=== PATIENT | female | born 1980 | race Hispanic/Latino ===

== ENCOUNTER 2019-01-27 05:24 | Emergency (ER) | payer BC ==
[2019-01-27 05:33] VITALS: BP 135/87; TEMP 98.6
--- NOTE | 2019-01-27 06:22 | ED PDOC ---
History of Present Illness History of Present Illness: 39 year old female with no significant medical history presents to the ED for evaluation of a sore throat and chills for 4 days. Patient reports symptoms are worst today, prompting visit. She took Benadryl yesterday with no relief of symptoms. Patient states, in addition to other symptoms, she also vomited once 3 days ago. Offers no other complaints. PMD: none HPI: Influenza Time Seen by Provider: 01/27/19 05:30 Chief Complaint: Flu-like Symptoms Chief Complaint (Provider): Flu-like Symptoms History Per: Patient Exam Limitations: no limitations Onset/Duration Of Symptoms: Days (x 4) Symptoms include: sore throat, vomiting, other (chills) Past Medical History Reviewed: Historical Data, Nursing Documentation, Vital Signs Vital Signs: Last Vital Signs Temp 98.6 F 01/27/19 05:29 Pulse 101 H 01/27/19 05:29 Resp 19 01/27/19 05:29 BP 135/87 01/27/19 05:29 Pulse Ox 96 01/27/19 05:29 - Medical History PMH: No Chronic Diseases - Surgical History Other surgeries: breast lift (many years ago) - Family History Family History: States: Unknown Family Hx - Social History Current smoker - smoking cessation education provided: No Alcohol: None Drugs: Denies - Immunization History Hx Influenza Vaccination: No - Home Medications Home Medications: Ambulatory Orders Medication Instructions Recorded No Known Home Med 11/05/15 - Allergies Allergies/Adverse Reactions: Allergies Allergy/AdvReac Type Severity Reaction Status Date / Time No Known Allergies Allergy Verified 01/27/19 05:32 Review of Systems ROS Statement: Except As Marked, All Systems Reviewed And Found Negative Constitutional: Positive for: Chills ENT: Positive for: Throat Pain Gastrointestinal: Positive for: Vomiting (x 1 episode) Physical Exam - Reviewed Nursing Documentation Reviewed: Yes Vital Signs Reviewed: Yes - Physical Exam Appears: Positive for: Non-toxic, No Acute Distress Head Exam: Positive for: ATRAUMATIC, NORMAL INSPECTION, NORMOCEPHALIC Skin: Positive for: Normal Color, Warm, DRY Eye Exam: Positive for: EOMI, Normal appearance, PERRL ENT: Positive for: Pharyngeal Erythema, Tonsillar Exudate (right side), Tonsillar Swelling (bilateral) Neck: Positive for: Normal, Painless ROM, Supple Cardiovascular/Chest: Positive for: Regular Rate, Rhythm. Negative for: Murmur Respiratory: Positive for: Normal Breath Sounds. Negative for: Respiratory Distress Gastrointestinal/Abdominal: Positive for: Normal Exam, Soft. Negative for: Tenderness Back: Positive for: Normal Inspection. Negative for: L CVA Tenderness, R CVA Tenderness Extremity: Positive for: Normal ROM (x 4). Negative for: Deformity Neurological/Psych: Positive for: Awake, Alert, Normal Tone, Oriented (x 3). Negative for: Motor/Sensory Deficits Medical Decision Making Medical Decision Makin:08 Impression: sore throat and chills r/o strep rule out flu Initial Plan: --Motrin 600 mg PO --Rapid strep --Influenza AB 07:00 Patient will be signed out to Dr. Carver pending full ER workup, re-evaluation and final disposition. Patient is stable with normal vitals and in no distress. Scribe Attestation: Documented by Carmel Up, acting as a scribe for Sergio Champion MD Provider Scribe Attestation: All medical record entries made by the Scribe were at my direction and personally dictated by me. I have reviewed the chart and agree that the record accurately reflects my personal performance of the history, physical exam, medical decision making, and the department course for this patient. I have also personally directed, reviewed, and agree with the discharge instructions and disposition. - ECG O2 Sat by Pulse Oximetry: 96 (RA) Pulse Ox Interpretation: Normal Disposition - Clinical Impression Clinical Impression: Sore throat - Patient ED Disposition Is Patient to be Admitted: Transfer of Care - Disposition Disposition: Transfer of Care Disposition Time: 07:00 Condition: STABLE Forms: [email or web address] (Guyanese) Patient Signed Over To: Errol Carver
--- NOTE | 2019-01-27 07:39 | ED PDOC ---
- ECG O2 Sat by Pulse Oximetry: 96 (RA) Disposition - Clinical Impression Clinical Impression: Sore throat - POA Present On Arrival: None - Disposition Referrals: [facility] [Outside] Disposition: Routine/Home Disposition Time: 07:38 Condition: FAIR Prescriptions: Azithromycin [Zithromax] 250 mg PO DAILY #6 tab Instructions: Sore Throat in Adults Forms: [facility] (Occitan)
[2019-01-27 07:47] VITALS: PULSE 92; RESP 18; O2SAT 98
== END 2019-01-27 07:47 | disposition home or self-care (01) ==
LOC: H.ER 05:24
DX: J02.9 Acute pharyngitis, unspecified (principal)